=== PATIENT | male | born 1965 | race African-American/Black ===

== ENCOUNTER 2017-06-14 11:53 | Emergency (ER) | payer OTHER ==
[~2017-06-14] VITALS: Ht 175.3 cm; Wt 75.0 kg
[~2017-06-14 11:53] MED LIST: DILT-26 PO; FOLI-43 PO; METO-293 PO; MULT-1146 PO; Metoprolol Tartrate PO; OMEP20CA10 PO; ONDA4TAB5 PO
[2017-06-14] MEDS ORDERED: KETOROLAC 60MG/2ML VIAL IM STA (14:37)
[2017-06-14 15:25] LABS: CLARITY URINE CLEAR (CLEAR); COLOR URINE YELLOW (YELLOW); KETONES URINE 2+ (NEGATIVE); LEUKOCYTE ESTERASE URINE NEGATIVE (NEGATIVE); NITRITE URINE NEGATIVE (NEGATIVE); OCCULT BLOOD URINE NEGATIVE (NEGATIVE); PROTEIN URINE NEGATIVE (NEGATIVE); SPECIFIC GRAVITY URINE 1.021 (1.005-1.030)
[2017-06-14 15:58] LABS: BASOPHILS % 0.9 % (0.0-2.0); EOSINOPHILS % 0.7 % (0.0-5.0); HEMATOCRIT. 38.3 % (42.0-52.0); LYMPHOCYTES % 12.4 % (20.0-50.0); MEAN CORPUSCULAR HEMOGLOBIN 28.8 pg (28.0-32.0); MEAN PLATELET VOLUME 7.2 fl (7.4-10.4); MONOCYTES % 11.8 % (2.0-8.0); NEUTROPHILS % 74.2 % (40.0-76.0); PLATELET 321 x1000/uL (130-400); RED CELL DISTRIBUTION WIDTH 14.5 % (11.6-14.6)
[2017-06-14 15:59] VITALS: BP 124/83
[2017-06-14 16:11] LABS: CARBON DIOXIDE 29 mEq/L (21-32); CHLORIDE 102 mEq/L (98-107)
== END 2017-06-14 16:51 | disposition home or self-care (01) ==
LOC: ER 11:53
DX: M79.605 Pain in left leg (principal); M16.12 Unilateral primary osteoarthritis, left hip
CPT/HCPCS: 36415; 73502; 80053; 81003; 85025; 96372; 99285; J1885

== ENCOUNTER 2017-12-21 14:16 | Emergency (ER) | payer OTHER ==
[~2017-12-21] VITALS: Ht 177.8 cm; Wt 78.0 kg
[2017-12-21] MEDS ORDERED: SODIUM CHLORIDE 0.9% 1,000 ML IV ONE (16:15)
[2017-12-21] MEDS ORDERED: HYDROCODONE/ACETAMINOPHEN 5/325MG TABLET PO ONE (16:45)
[2017-12-21] MEDS ORDERED: KETOROLAC 15MG/ML VIAL IV ONE (16:45)
[2017-12-21 17:29] LABS: BASOPHILS % 0.8 % (0.0-2.0); EOSINOPHILS % 2.1 % (0.0-5.0); HEMATOCRIT. 24.9 % (42.0-52.0); HEMOGLOBIN. 8.4 g/dL (14.0-18.0); LYMPHOCYTES % 22.2 % (20.0-50.0); MEAN CORPUSCULAR HEMOGLOBIN 26.9 pg (28.0-32.0); MEAN CORPUSCULAR VOLUME 79.5 fL (80.0-94.0); MEAN PLATELET VOLUME 9.8 fl (7.4-10.4); MONOCYTES % 2.9 % (2.0-8.0); PLATELET 90 x1000/uL (130-400); RED BLOOD CELL COUNT 3.13 mill/uL (4.7-6.1); RED CELL DISTRIBUTION WIDTH 19.8 % (11.6-14.6)
[2017-12-21 17:34] LABS: CHLORIDE 106 mEq/L (98-107)
[2017-12-21 17:40] LABS: INR 1.2; PARTIAL THROMBOPLASTIN TIME 30.6 sec (23.4-31.0)
[2017-12-21 17:42] LABS: CLARITY URINE CLEAR (CLEAR); COLOR URINE YELLOW (YELLOW); KETONES URINE 1+ (NEGATIVE); LEUKOCYTE ESTERASE URINE NEGATIVE (NEGATIVE); NITRITE URINE NEGATIVE (NEGATIVE); OCCULT BLOOD URINE TRACE (NEGATIVE); PROTEIN URINE 1+ (NEGATIVE); UROBILINOGEN URINE 0.2 E.U./dL (0.2-1.0)
[2017-12-21] MEDS ORDERED: METOCLOPRAMIDE HCL 10MG/2ML VIAL IV ONE (18:00)
[2017-12-21 19:30] VITALS: BP 126/82
== END 2017-12-21 19:45 | disposition home or self-care (01) ==
LOC: ER 14:16
DX: M54.89 Other dorsalgia (principal); G89.29 Other chronic pain; D72.819 Decreased white blood cell count, unspecified; E86.0 Dehydration; R94.5 Abnormal results of liver function studies; D63.0 Anemia in neoplastic disease; F17.200 Nicotine dependence, unspecified, uncomplicated; Z85.46 Personal history of malignant neoplasm of prostate; Z92.21 Personal history of antineoplastic chemotherapy
CPT/HCPCS: 36415; 80053; 81003; 85025; 85610; 85730; 96361; 96374; 96375; 99284; J1885; J2765; J7030